=== PATIENT | male | born 1970 | race Caucasian/White ===

== ENCOUNTER 2020-03-02 11:32 | Outpatient (NON) | payer OTHER, SELFPAY ==
[2020-03-03 00:03] LABS: SARS-CoV-2 RNA PCR Positive
== END 2020-03-02 11:33 ==
LOC: ANHCOVIDDT 11:33
PROVIDERS: PCP Family Medicine; Visit Provider Family Medicine
DX: U07.1 COVID-19 (principal)
CPT/HCPCS: 87635; C9803; U0003

== ENCOUNTER 2021-03-06 08:38 | Emergency (ER) | payer OTHER, SELFPAY ==
--- NOTE | ~2021-03-06 | US_ITS ---
EXAMINATION: US venous doppler LE RT EXAM DATE: 03/06/2021 10:17 INDICATION: Right leg pain. TECHNIQUE: Multiple grayscale, color flow and Doppler images of the right lower extremity deep venous system were obtained and reviewed. Correlation is made to CT abdomen pelvis 04/21/2015. FINDINGS: The right common femoral, femoral and profunda veins demonstrate normal color flow, respira tory variation, augmentation and compressibility. Compressibility, color flow confirmed within the r ight popliteal, posterior tibial, peroneal, and greater saphenous veins. Right inguinal lymph node m easuring 1.4 x 2.4 x 3.1 cm which could be reactive. There were some prominent lymph nodes on a prior CT 2016 in this location. IMPRESSION: 1. No right lower extremity deep venous thrombosis. 2. Mild right inguinal lymphadenopathy, would favor reactive etiology over malignancy. Reviewed, dictated and finalized at location A. CAL RECORD TECHNICIAN IMPRESSION: 1. No right lower extremity deep venous thrombosis. 2. Mild right inguinal lymphadenopathy, would favor reactive etiology over mal ignancy.
[2021-03-06 08:48] VITALS: BP 192/112; PULSE 91; RESP 18; TEMP 36.7; O2SAT 100
--- NOTE | 2021-03-06 09:18 | ED.EXTPRO ---
HPI - Extremity Problem General Chief complaint: Extremity Problem,Nontraumatic Stated complaint: leg swollen and red Time Seen by Provider: 03/06/21 09:07 Source: patient Mode of arrival: ambulatory Limitations: no limitations History of Present Illness HPI Narrative: Patient is a 50-year-old male complaining of right leg pain, redness and swelling that started 2 days ago. Patient denies any injury to the area. Patient denies any chest pain, shortness of breath, fever or chills. Severity scale (1-10): 4 Quality: dull Radiation: none Relieving factors: nothing Exacerbating factors: nothing Associated symptoms: denies other symptoms Related Data Allergies Allergy/AdvReac Type Severity Reaction Status Date / Time No Known Allergies Allergy Unknown Verified 05/13/19 14:40 Review of Systems Review of Systems: All systems reviewed & are unremarkable except as noted in HPI and below Constitutional: Constitutional: Denies body ache(s), Denies chills, Denies excessive sweating, Denies fatigue, Denies fever(s), Denies headache(s), Denies lethargy, Denies malaise, Denies weakness and Denies weight loss Eyes: Eyes: Denies blurry vision, Denies change in vision and Denies loss of vision ENT: Denies dizziness, Denies ear discharge, Denies headache(s), Denies lip swelling, Denies epistaxis, Denies nasal congestion, Denies neck pain, Denies throat swelling and Denies tongue swelling Cardiovascular: Cardiovascular: Denies chest pain, Denies chest pain at rest, Denies chest pain with activity, Denies diaphoresis, Denies rapid heart rate, Denies edema, Denies irregular heart rhythm, Denies lightheadedness, Denies palpitations, Denies dyspnea and Denies dyspnea on exertion Respiratory: Respiratory: Denies chest congestion, Denies cough, Denies hemoptysis, Denies dyspnea and Denies dyspnea on exertion Gastrointestinal: Gastrointestinal: Denies abdominal pain, Denies melena, Denies hematochezia, Denies diarrhea, Denies nausea, Denies vomiting and Denies hematemesis Musculoskeletal: Musculoskeletal: Denies abnormal gait, Denies deformity, Denies joint swelling, Denies limited range of motion, Denies neck pain and Denies numbness Neurologic: Denies Abnormal speech present, Denies abnormal gait, Denies confusion, Denies dizziness, Denies headache(s), Denies focal weakness, Denies loss of vision, Denies numbness, Denies Other visual disturbances, Denies Sensory deficit (Neuro) and Denies weakness Psychiatric: Psychiatric: Denies confusion, Denies depression, Denies auditory hallucinations, Denies homicidal ideation and Denies suicidal ideation Endocrine: Endocrine: Denies cold intolerance, Denies excessive sweating, Denies fatigue, Denies heat intolerance and Denies palpitations Hematologic/Lymphatic: Hematologic/Lymphatic: Denies easy bleeding and Denies easy bruising Allergic/Immunologic: Allergic/Immunologic: Denies lip swelling, Denies throat swelling and Denies tongue swelling PMFSH Past Medical History Medical History (Updated 03/06/21 @ 10:44 by Kenton Palma MD) Anemia HTN (hypertension) Hyperlipidemia Phimosis of penis Prediabetes Social History Social History Smoking status: Never smoker Alcohol intake: never Exam Const: General: cooperative, comfortable, no acute distress, well developed, alert and awake; No confusion Nutritional Appearance: obese Orientation/consciousness: oriented to person, oriented to place, oriented to time, patient oriented x3 and No confusion Limitations: no limitations HENMT: Head: normal to inspection, normocephalic and atraumatic Ears: hearing grossly normal bilaterally, TM normal on the right and TM normal on the left General nose exam: Normal external nose present, Normal nares present and No nasal discharge present Face and sinus: normal facial exam Mouth: Yes Normal oral and palatal mucosa present, Yes lip normal, Yes tongue normal
[2021-03-06 09:48] LABS: Basophils Percent Auto 0.4 % (0.2-1.2); Eosinophils Absolute Auto 0.7 K/mm3 (0-0.3); Eosinophils Percent Auto 8.9 % (0-4.4); Hemoglobin 10.6 g/dL (14.0-18.0); Immature Granulocyte Absolute 0.03 K/mm3 (0.00-0.031); Immature Granulocyte Percent A 0.4 % (0-0.5); Lymphocytes Percent Auto 7.8 % (18.3-44.2); Mean Corpuscular HGB Conc 27.9 g/dl (32-36); Mean Corpuscular Hemoglobin 19.4 pg (26-34); Mean Corpuscular Volume 69.5 fl (80-100); Mean Platelet Volume 9.1 fl (7.4-10.4); Monocytes Absolute Auto 0.6 K/mm3 (0.1-0.6); Monocytes Percent Auto 7.9 % (2.6-8.5); Neutrophils Absolute Auto 5.8 K/mm3 (1.3-6.7); Neutrophils Percent Auto 74.6 % (45.5-73.1); Platelet Count Result 240 k/mm3 (150-375); Red Blood Count 5.47 M/mm3 (4.6-6.20); Red Cell Distribution Width 17.7 % (11.5-14.5); White Blood Count 7.7 K/mm3 (4.5-10.0)
[2021-03-06 10:09] LABS: Anion Gap 7 mmol/L (8-16); Blood Urea Nitrogen 12 mg/dL (9-20); Calcium 8.6 mg/dL (8.4-10.2); Carbon Dioxide 29 mmol/L (22-30); Chloride 97 mmol/L (98-107); Estimated CRCL calculation 146 ml/min; Estimated Glomerular Filt Rate > 60; Glucose 242 mg/dL (65-110); Potassium 3.8 mmol/L (3.4-5.0); Sodium 133 mmol/L (137-145)
[2021-03-06 10:46] VITALS: BP 174/98; PULSE 93; RESP 16; O2SAT 98
== END 2021-03-06 11:28 | disposition home or self-care (01) ==
PROVIDERS: Emergency Provider Emergency Medicine; PCP Family Medicine
DX: L03.115 Cellulitis of right lower limb (principal); I10 Essential (primary) hypertension; E78.5 Hyperlipidemia, unspecified; R73.03 Prediabetes; D64.9 Anemia, unspecified
CPT/HCPCS: 36415; 80048; 85025; 93971; 99284

== ENCOUNTER 2022-12-26 12:23 | Observation (INO) | payer OTHER, SELFPAY ==
[2022-12-26] VITALS (17 sets, daily range): BP systolic 164–203; BP diastolic 96–110; PULSE 89–114; RESP 17–23; TEMP 36.2–36.7; O2SAT 88–98; BMI 39.9
--- NOTE | ~2022-12-26 | US_ITS ---
EXAMINATION:US venous doppler LE BI INDICATION:Leg swelling TECHNIQUE: Multiple grayscale, color flow and Doppler images of the right and left lower extremity de ep venous systems were obtained and reviewed. COMPARISON:03/06/2021 FINDINGS: The common femoral, superficial femoral and popliteal veins demonstrate normal respiratory variation, augmentation and compressibility. Color flow is also seen within the posterior tibial, pe roneal, greater saphenous and profunda veins. IMPRESSION: 1: No lower extremity deep venous thrombosis. Reviewed, dictated and finalized at location B.
--- NOTE | ~2022-12-26 | XR_ITS ---
EXAMINATION: XR chest 2V DATE: 12/26/2022 13:32 INDICATION: Shortness of breath. Cough. TECHNIQUE: Frontal and lateral views of the chest were obtained. COMPARISON: Chest single view 12/06/2013, chest CT 12/12/2013 FINDINGS: There is a diffuse interstitial pattern in the lungs, consistent mild pulmonary edema. Ther e are small pleural effusions. There is mild atelectasis at the lung bases. No pneumothorax. Cardiome michaelle is noted. Again seen is a benign bone island in right fifth rib. IMPRESSION: 1. Mild pulmonary edema. 2. Small pleural effusions. 3. Cardiomegaly. Reviewed, dictated and finalized at location A.
--- NOTE | 2022-12-26 12:31 | ECG_ITS ---
Measurements Intervals [place] Rate: 105 P: 41 [place]: 167 QRS: 37 QRSD: 114 T: 72 QT: 362 QTc: 479 Interpretive Statements SINUS TACHYCARDIA INTRAVENTRICULAR CONDUCTION DELAY BASELINE ARTIFACT- V2 BORDERLINE ECG NO PREVIOUS ECG AVAILABLE FOR COMPARISON Electronically Signed On 12-26-2022 13:07:02 CDT by Godwin Granados D.O.
[2022-12-26 12:55] LABS: Basophils Percent Auto 0.5 % (0.2-1.2); Eosinophils Absolute Auto 0.4 K/mm3 (0-0.3); Eosinophils Percent Auto 4.8 % (0-4.4); Hemoglobin 9.4 g/dL (14.0-18.0); Immature Granulocyte Absolute 0.05 K/mm3 (0.00-0.031); Immature Granulocyte Percent A 0.7 % (0-0.5); Lymphocytes Absolute Auto 0.91 K/mm3 (0.9-3.2); Lymphocytes Percent Auto 11.9 % (18.3-44.2); Mean Corpuscular HGB Conc 26.1 g/dl (32-36); Mean Corpuscular Hemoglobin 17.8 pg (26-34); Mean Corpuscular Volume 68.1 fl (80-100); Mean Platelet Volume 10.1 fl (7.4-10.4); Monocytes Absolute Auto 0.7 K/mm3 (0.1-0.6); Monocytes Percent Auto 8.8 % (2.6-8.5); Neutrophils Absolute Auto 5.6 K/mm3 (1.3-6.7); Neutrophils Percent Auto 73.3 % (45.5-73.1); Nucleated Red Blood Cells Perc 0.3 % (0.0-0.2); Platelet Count Result 291 k/mm3 (150-375); Red Blood Count 5.29 M/mm3 (4.6-6.20); Red Cell Distribution Width 18.6 % (11.5-14.5); White Blood Count 7.6 K/mm3 (4.5-10.0)
[2022-12-26 13:04] LABS: Alanine Aminotransferase 68 U/L (6-50); Albumin Level 3.7 g/dL (3.5-5.1); Alkaline Phosphatase 81 U/L (38-126); Anion Gap 4 mmol/L (8-16); Aspartate Amino Transferase 47 U/L (17-59); Bilirubin,Total 0.6 mg/dL (0.2-1.3); Blood Urea Nitrogen 13 mg/dL (9-20); Calcium 8.1 mg/dL (8.4-10.2); Carbon Dioxide 31 mmol/L (22-30); Chloride 98 mmol/L (98-107); Estimated CRCL calculation 198 ml/min; Estimated Glomerular Filt Rate > 60; Glucose 236 mg/dL (65-110); Potassium 4.1 mmol/L (3.4-5.0); Sodium 133 mmol/L (137-145)
--- NOTE | 2022-12-26 13:14 | PC.NURSE ---
Pt 89% on room air, placed on 2 L NC O2 and pulse Ox Sat now 97%.
[2022-12-26 13:28] LABS: Anisocytosis 1+ (NORMAL); Hypochromasia 1+ (NORMAL); Platelet Estimate Adequate (Adequate); Schistocytes None Seen (NORMAL)
[2022-12-26 14:08] LABS: NT Pro B Type Natriuretic Pept 1150 pg/mL (19.9-100)
--- NOTE | 2022-12-26 14:38 | PC.NURSE ---
pt placed on 2 LNC after SPO2 of 88-90% on RA trial
--- NOTE | 2022-12-26 14:38 | ED.SOB ---
HPI - SOB/Dyspnea General Chief Complaint: Shortness of Breath/Dyspnea Stated Complaint: SOB Time Seen by Provider: 12/26/22 14:15 History of Present Illness HPI Narrative: Patient is a 52-year-old male with a history of diabetes, hypertension presenting with shortness of breath. Patient states that for the last week he has had increasingly worsening dyspnea. States that he initially had some nasal congestion so he thought it was just a cold. His PCP started him on a Z-Oc which he finished 2 days ago. States that his cough and nasal congestion have improved but he continues to feel short of breath. States that it is gotten so bad that he is unable to go to work. States that he has been sleeping in a chair for the last 4 days as he cannot breathe if he lays flat. Denies chest pain or lightheadedness. He does report bilateral lower extremity swelling. No fevers or chills, numbness or weakness, vomiting, diarrhea, back pain, dysuria. Related Data Home Medications Medication Instructions Recorded Confirmed empagliflozin 12.5 mg-metformin ER 2 tablet PO DAILY 12/26/22 12/26/22 1,000 mg tablet,extended rel 24 hr (Synjardy XR) Allergies Allergy/AdvReac Type Severity Reaction Status Date / Time watermelon Allergy Swelling Verified 12/26/22 23:29 of Lip/Tongue/Throat Review of Systems Review of Systems: All systems reviewed & are unremarkable except as noted in HPI and below PMFSH Past Medical History Medical History Anemia BMI 39.0-39.9,adult Diabetes type 2, uncontrolled HTN (hypertension) Hyperlipidemia Phimosis of penis Prediabetes Family History Family History (Updated 12/26/22 @ 22:24 by Lalit Gonzalez RN) Grandparent Bone cancer Grandparent Lung cancer Social History Social History Smoking status: Never smoker Alcohol intake: never Substance use: never Lack of Transportation: No Lack of Food: Never True Current Housing: I Have Housing Concerned About Future Housing: YES Difficulty Paying Gas/Electric Bills: No Difficulty Paying for Meds: YES Currently Unemployed: No Education: High School Diploma/GED Difficulty w/ Childcare or Family Care: No Spiritual care concerns: No Exam Narrative: GENERAL: In no acute distress, pleasant and cooperative HEAD: Normocephalic, atraumatic. EYES: PERRLA and EOMI. ENT: + Nasal congestion. Mucous membranes moist. NECK: Supple. CHEST: Clear to auscultation. No respiratory distress. HEART: Regular rate and rhythm. No murmur heard. Normal peripheral pulses. ABDOMEN: Soft, nontender, nondistended EXTREMITIES: Normal range of motion. 1+ pitting edema bilateral lower extremities to mid calves SKIN: Warm, dry, no rash. NEURO: No focal deficits. Alert and oriented x3. PSYCH: Normal mood and affect. Course Vital Signs Vital signs: Vital Signs Temperature 98.0 F 12/26/22 12:36 Pulse Rate 109 H 12/26/22 12:36 Respiratory Rate 18 12/26/22 12:36 Blood Pressure 198/101 H 12/26/22 12:36 Pulse Oximetry 95 12/26/22 12:36 Oxygen Delivery Room Air 12/26/22 12:36 Temperature 96.9 F L 12/28/22 11:50 Pulse Rate 76 12/28/22 11:50 Respiratory Rate 20 12/28/22 11:50 Blood Pressure 161/86 H 12/28/22 11:50 Pulse Oximetry 96 12/28/22 11:50 Oxygen Delivery Room Air 12/27/22 16:00 Oxygen Flow Rate 2 12/26/22 14:25 MDM - SOB/Dyspnea MDM Narrative Medical decision making narrative: Patient is a 52-year-old male presenting with dyspnea. Patient is hypertensive, he was hypoxic on room air to 88%. Placed on 2 L nasal cannula with improvement to the mid 90s. Exam remarkable for the above. EKG per my interpretation shows sinus tachycardia, normal axis, no ST elevations or depressions. Chest x-ray with cardiomegaly as well as evidence of pulmonary edema with small sarah
[2022-12-26 15:02] LABS: Prothrombin Time 13.7 Seconds (11.1-14.7)
[2022-12-26 15:26] LABS: Influenza A QL RT-PCR Negative (Negative); Influenza B QL RT-PCR Negative (Negative); RSV RNA, RT-PCR Negative (Negative); SARS-CoV-2 RNA PCR Negative (Negative)
[2022-12-26] MEDS: FUROSEMIDE INJ 40 MG/4 ML VIAL IV PUSH (19:08)
[2022-12-26 19:37] LABS: Troponin I 0.053 ng/mL (0.000-0.034)
--- NOTE | 2022-12-26 19:40 | PM.IMHP ---
H&P: HPI History of Present Illness Date/Time: 12/26/22 19:40 Chief Complaint: SOB Narrative: THIS IS A 52-YEAR-OLD MALE WITH PAST MEDICAL HISTORY SIGNIFICANT FOR HYPERTENSION, TYPE 2 DIABETES MELLITUS, PATIENT PRESENTS TO THE EMERGENCY ROOM DUE TO BILATERAL LOWER EXTREMITY WORSENING EDEMA, SHORTNESS OF BREATH, PND, ORTHOPNEA HAS BEEN SLEEPING IN HIS RECLINER DENIES NAUSEA VOMITING ABDOMINAL PAIN, DIARRHEA, COUGH, SPUTUM PRODUCTION, SYNCOPE OR NEAR-SYNCOPE, HAS HAD CHEST PAIN ON AND OFF ON EXERTION. PRELIMINARY WORKUP WAS SIGNIFICANT FOR BRAIN NATRIURETIC PEPTIDE 1150 TROPONINS X3 0.4 / 0.53/ 0.4, CHEST X-RAY WAS REPORTED : EXAMINATION: XR chest 2V DATE: 12/26/2022 13:32 INDICATION: Shortness of breath. Cough. TECHNIQUE: Frontal and lateral views of the chest were obtained. COMPARISON: Chest single view 12/06/2013, chest CT 12/12/2013 FINDINGS: There is a diffuse interstitial pattern in the lungs, consistent mild pulmonary edema. There are small pleural effusions. There is mild atelectasis at the lung bases. No pneumothorax. Cardiomegaly is noted. Again seen is a benign bone island in right fifth rib. IMPRESSION: 1. Mild pulmonary edema. 2. Small pleural effusions. 3. Cardiomegaly. EKG Rate 105 MI 167 QRSd 114 QT 362 QTc 479 --Dairy-- P 41 QRS 37 T 72 SINUS TACHYCARDIA INTRAVENTRICULAR CONDUCTION DELAY BASELINE ARTIFACT- V2 BORDERLINE ECG NO PREVIOUS ECG AVAILABLE FOR COMPARISON Electronically Signed On 12-26-2022 13:07:02 Review of Systems Review of Systems: SOB, LEG SWELLING, PND, ORTHOPNEA Constitutional: Constitutional: Denies chills, Reports fatigue, Denies fever(s), Denies frequent falls, Denies night sweats, Denies poor appetite, Denies weakness and Reports weight gain Eyes: Eyes: Denies change in vision ENT: Denies dysphagia, Denies vertigo, Denies dizziness and Denies odynophagia Cardiovascular: Cardiovascular: Reports chest pain, Reports leg edema, Denies radiating jaw, neck or arm pain, Denies palpitations, Reports dyspnea, Reports dyspnea on exertion, Reports orthopnea and Reports paroxysmal nocturnal dyspnea Respiratory: Respiratory: Denies chest congestion, Denies cough, Denies excessive phlegm production and Denies pain on inspiration Gastrointestinal: Gastrointestinal: Denies abdominal pain, Denies dyspepsia, Denies heartburn, Denies diarrhea, Denies nausea and Denies vomiting Genitourinary: Genitourinary: Denies dysuria Musculoskeletal: Musculoskeletal: Denies abnormal gait and Denies limited range of motion Integumentary/Breasts: Skin/Breast: Denies rash Neurologic: Denies vertigo, Denies dizziness, Denies focal weakness and Denies Sensory deficit (Neuro) Psychiatric: Psychiatric: Reports no additional psychiatric complaints and Reports as per HPI Endocrine: Endocrine: Denies cold intolerance, Denies fatigue, Denies flushing, Denies heat intolerance, Denies polyphagia, Denies polydipsia and Denies palpitations Hematologic/Lymphatic: Hematologic/Lymphatic: Reports no additional hematologic/lymphatic complaints and Reports as per HPI Allergic/Immunologic: Allergic/Immunologic: Reports no additional allergic/immunologic complaints and Reports as per HPI PMFSH Past Medical History Medical History Anemia BMI 39.0-39.9,adult Diabetes type 2, uncontrolled HTN (hypertension) Hyperlipidemia Phimosis of penis Prediabetes Family History Family History (Updated 12/26/22 @ 22:24 by Lalit Gonzalez RN) Grandparent Bone cancer Grandparent Lung cancer Social History Social History Smoking status: Never smoker Alcohol intake: never Substance use: never Lack of Transportation: No Lack of Food: Never True Current Housing: I Have Housing Concerned About Future Housing: YES Difficulty Paying Gas/Electric Bills: No Difficulty Paying for Meds: YES Currently U
--- NOTE | 2022-12-26 22:31 | ADMGEN ---
This patient, Nixon Su, was admitted to IMU Room 209-. Patient/family oriented to hospital policies and general routines including ID bracelet, bed and alarms, visiting hours, pain management, procedures, bathroom and other care routines, personal items, smoking policy, room service/diet, and visiting hours. Information on how to activate the Rapid Response Team has been discussed. Patient/Family are encouraged to report perceived risks to care and to ask questions if they do not understand what they are told or what they should do.
--- NOTE | 2022-12-26 22:46 | PC.NURSE ---
Patient previously taking home meds, hasn't taken anything recently (last few months) despite filling metoprolol prescription recently. I'll include a list of what patient was previously prescribed, but removed from home medication list. Amlodipine 5mg Daily Ramipril 10mg Daily Synjardy 12.5-1000 x 2 Daily Metoprolol 50mg Daily
[2022-12-26 23:22] LABS: Glucose Point of Care 193 mg/dl (65-105)
[2022-12-27] VITALS (16 sets, daily range): BP systolic 141–182; BP diastolic 73–93; PULSE 59–103; RESP 16–22; TEMP 36.2–36.7; O2SAT 93–98
--- NOTE | 2022-12-27 | ECHO_ITS ---
Patient Info Name: Nixon Su Age: 52 years : 1970 Gender: Male Ht: 70 in Wt: 280 lbs BSA: 2.56 m2 HR: 100 bpm BP: 153 / 93 mmHg Heart Rhythm: Sinus Rhythm Technical Quality: Good Exam Date: 12/27/2022 9:58 AM Exam Location: [facility] Patient Status: Inpatient Admit Date: 12/26/2022 Staff Ordering Physician: Elsie Jiménez MD Prospecting Driller Helper: Maximiliano Quispe RDCS Attending Provider: Kash Stanton MD Referring Physician: Jessy VALDEZ; Exam Type: CA echo doppler color flow Study Info Indications - leg swelling Complete two-dimensional, color flow and Doppler transthoracic echocardiogram is performed with contrast to opacify the left ventricle and to improve the deliniation of the left ventricle endocardial borders. Summary 1. Left ventricular chamber dimension is normal. 2. Left ventricular systolic function is mildly reduced, estimated at 45-50%. 3. Right ventricular systolic function is normal. 4. There is mild mitral valve regurgitation. 5. There is mild tricuspid valve regurgitation. 6. There is small pericardial effusion. Left Ventricle Left ventricular chamber dimension is normal. Left ventricular systolic function is mildly reduced, estimated at 45-50%. There is no increased left ventricular wall thickness. Right Ventricle Right ventricular chamber dimension is normal. Right ventricular systolic function is normal. Left Atria Left atrial chamber dimension is normal. Right Atria Right atrial chamber dimension is normal. Atrial Septum Intact interatrial septum visualized by color flow imaging. Aortic Valve The aortic valve is not well visualized. There is no aortic valve stenosis. There is no aortic valve regurgitation. Pulmonic Valve The pulmonic valve is not well visualized. Mitral Valve There is mild mitral valve regurgitation. The mitral valve annulus is moderately calcified. Tricuspid Valve There is mild tricuspid valve regurgitation. Pericardium/Pleural There is small pericardial effusion. Inferior Vena Cava Dilated inferior vena cava with >50% collapse upon inspiration consistent with elevated right atrial pressure, 8 mmHg. Aorta The aortic root size at the sinus of Valsalva is normal. Left Ventricular Outflow Tract Name Value Normal LVOT 2D LVOT Diameter 1.9 cm LVOT Doppler LVOT Peak Gradient 2 mmHg LVOT Mean Gradient 1 mmHg LVOT VTI 24 cm LVOT VTI/AV VTI Ratio 0.9 LVOT Stroke Volume 72 ml LVOT CO 3.7 l/min LVOT CI 1.4 l/min/m2 Pulmonic Valve Name Value Normal RVOT Doppler RVOT Peak Gradient 1 mmHg PV Doppler PV Peak Gradient 2 mmHg Alex
[2022-12-27] MEDS: amLODIPine BESYLATE 5 MG TABLET PO ×2 (00:17→11:03)
[2022-12-27] MEDS: METOPROLOL SUCCINATE EXT REL 50 MG TABCR PO ×2 (00:17→11:02)
[2022-12-27] MEDS: ramipriL 5 MG CAPSULE 10 MG PO ×2 (00:20→11:02)
[2022-12-27 04:56] LABS: Hemoglobin A1C 9.9 % (<5.7)
[2022-12-27 08:18] LABS: Glucose Point of Care 182 mg/dl (65-105)
[2022-12-27] MEDS: FUROSEMIDE INJ 40 MG/4 ML VIAL IV PUSH ×2 (10:53→18:03)
[2022-12-27 12:29] LABS: Glucose Point of Care 141 mg/dl (65-105)
[2022-12-27 13:03] LABS: Anion Gap 3 mmol/L (8-16); Blood Urea Nitrogen 12 mg/dL (9-20); Calcium 8.4 mg/dL (8.4-10.2); Carbon Dioxide 36 mmol/L (22-30); Chloride 98 mmol/L (98-107); Estimated CRCL calculation 166 ml/min; Estimated Glomerular Filt Rate > 60; Glucose 199 mg/dL (65-110); Potassium 4.3 mmol/L (3.4-5.0); Sodium 137 mmol/L (137-145)
[2022-12-27 13:16] LABS: Troponin I 0.047 ng/mL (0.000-0.034)
--- NOTE | 2022-12-27 16:33 | PM.IMPN ---
Progress Note: A&P Assessment and Plan (1) CHF (congestive heart failure): Code(s): I50.9 - Heart failure, unspecified Status: Acute (2) Elevated troponin I level: Code(s): R77.8 - Other specified abnormalities of plasma proteins Status: Acute (3) Diabetes type 2, uncontrolled: Qualifiers: Glycemic state: with hyperglycemia Qualified Code(s): E11.65 - Type 2 diabetes mellitus with hyperglycemia Code(s): E11.65 - Type 2 diabetes mellitus with hyperglycemia Status: Acute Plan 52M w/ PMH HTN, obesity, NIDDM presented with shortness of breath, admitted on 12/26/22. Diagnoses: acute on chronic CHF exacerbation, unknown subtype obesity NIDDM HTN 1) Acute on Chronic CHF exacerbation, unknown subtype - pending echocardiogram - increased lasix from 40mg IV BID to TID since his LE edema has returned - counseled extensively on weight loss, exercise, blood pressure and glucose control, salt and fluid restriction and compliance with medications - will need CHF clinic and department assistant referral on discharge FEN: saline lock IV, cardiac diabetic diet with 1.8L/day fluid restriction GI prophylaxis: none DVT prophylaxis: SCDs Lines: pIV Code Status: Full code Dispo: pending medication mgmt. then home More than 25 minutes spent on chart review, patient interaction and assessment and plan. Subjective Date/time seen: 12/27/22 16:33 Interval history: NAOE. Pt reports improved breathing. We are still waiting on echo results. He and the Kin krause report recurrence of bilateral leg edema. Review of Systems Cardiovascular: Cardiovascular: Denies chest pain, Reports leg edema and Denies dyspnea Respiratory: Respiratory: Denies cough and Denies dyspnea Gastrointestinal: Gastrointestinal: Denies abdominal pain and Denies vomiting Exam Const: General: no acute distress, alert and Physically active Resp: Effort & Inspection: normal respiratory effort Auscultation: clear to auscultation bilaterally Cardio: Rate: regular rate Rhythm: regular rhythm Heart sounds: S1 normal heart sound present and S2 normal heart sound present GI: Inspection: non-distended GI Palp: No abdominal tenderness Auscultation: normal bowel sounds Extrem: Right upper extremity: edema Objective Data Vital Signs Vital Signs: Vital Signs - 24 hr 12/26/22 16:45 12/26/22 17:47 12/26/22 18:46 Temperature 97.5 F L Pulse Rate 93 94 96 Respiratory Rate 20 20 20 Blood Pressure 203/102 H 187/98 H 164/97 H Pulse Oximetry 97 97 98 Oxygen Delivery 12/26/22 21:35 12/26/22 22:56 12/27/22 00:17 Temperature 97.2 F L Pulse Rate 94 105 H 103 H Respiratory Rate 17 22 H Blood Pressure 171/96 H 178/107 H Pulse Oximetry 96 97 Oxygen Delivery 12/27/22 00:00 12/27/22 04:00 12/27/22 06:00 Temperature 97.1 F L Pulse Rate 91 100 70 Respiratory Rate 22 H Blood Pressure 153/93 H Pulse Oximetry 98 Oxygen Delivery 12/27/22 04:00 12/27/22 08:00 12/27/22 11:02 Temperature 97.8 F Pulse Rate 91 73 71 Respiratory Rate 18 Blood Pressure 147/83 H Pulse Oximetry 97 Oxygen Delivery 12/27/22 10:19 12/27/22 12:00 12/27/22 08:00 Temperature 97.7 F Pulse Rate 88 74 Respiratory Rate 18 Blood Pressure 141/87 H Pulse Oximetry 96 96 Oxygen Delivery 12/27/22 10:00 12/27/22 12:00 12/27/22 08:00 Temperature Pulse Rate 72 66 66 Respiratory Rate 18 Blood Pressure Pulse Oximetry 96 Oxygen Delivery Room Air 12/27/22 12:00 Temperature Pulse Rate Respiratory Rate Blood Pressure Pulse Oximetry Oxygen Delivery Room Air Meds/Results Medications: Active Medications Generic Name Dose Route Start Last Admin Trade Name Grealdq PRN Reason Stop Dose Admin Amlodipine Besylate 5 mg 12/27/22 00:10 12/27/22 11:03 Amlodipine Besylate 5 Mg Tablet PO 5 mg DAILY SAIRA Administration Dextrose 12.5 gm 12/27/22 00:09 Dextrose 50%
[2022-12-27 16:36] LABS: Glucose Point of Care 199 mg/dl (65-105)
[2022-12-27] MEDS: INSULIN ASPART (*BKC) 100 UNITS/ML SUB-Q (20:18)
[2022-12-27 20:20] LABS: Glucose Point of Care 213 mg/dl (65-105)
[2022-12-28] VITALS (8 sets, daily range): BP systolic 137–161; BP diastolic 69–86; PULSE 66–108; RESP 18–22; TEMP 36.1–36.5; O2SAT 96–97
[2022-12-28 05:22] LABS: Hematocrit 38.7 % (42.0-52.0); Hemoglobin 9.8 g/dL (14.0-18.0); Mean Corpuscular HGB Conc 25.3 g/dl (32-36); Mean Corpuscular Hemoglobin 17.5 pg (26-34); Mean Corpuscular Volume 69.2 fl (80-100); Mean Platelet Volume 10.3 fl (7.4-10.4); Platelet Count Result 296 k/mm3 (150-375); Red Blood Count 5.59 M/mm3 (4.6-6.20); Red Cell Distribution Width 18.8 % (11.5-14.5)
[2022-12-28 05:35] LABS: Anion Gap 1 mmol/L (8-16); Blood Urea Nitrogen 14 mg/dL (9-20); Calcium 8.3 mg/dL (8.4-10.2); Carbon Dioxide 39 mmol/L (22-30); Chloride 95 mmol/L (98-107); Estimated CRCL calculation 166 ml/min; Estimated Glomerular Filt Rate > 60; Glucose 147 mg/dL (65-110); Potassium 4.1 mmol/L (3.4-5.0); Sodium 135 mmol/L (137-145)
[2022-12-28 08:14] LABS: Glucose Point of Care 137 mg/dl (65-105)
[2022-12-28] MEDS: ramipriL 5 MG CAPSULE 10 MG PO (09:09)
[2022-12-28] MEDS: METOPROLOL SUCCINATE EXT REL 50 MG TABCR PO (09:09)
[2022-12-28] MEDS: amLODIPine BESYLATE 5 MG TABLET PO (09:10)
[2022-12-28] MEDS: FUROSEMIDE INJ 40 MG/4 ML VIAL IV PUSH ×2 (09:10→12:10)
--- NOTE | 2022-12-28 11:38 | PM.DS ---
DS: Admitting Diagnosis Discharge Date 12/28/22 Admitting Diagnosis fluid overload DS: Discharge Diagnosis Discharge Diagnosis (1) CHF (congestive heart failure): Code(s): I50.9 - Heart failure, unspecified Status: Acute DS: Summary Hospital Course Hospital Course: A pleasant 52M w/ PMH HTN, obesity, NIDDM presented with shortness of breath 2/2 to newly diagnosed and decompensated HF borderline ejection fraction EF with a 2d echo demonstrating 45-50%EF. He was treated with Lasix and will be discharged on 40mg PO BID along with spironolactone 25mg po qday. He is already on metoprolol. His condition improved, breathing better, and will be discharged home in stable condition. He will follow up with [facility]ology of [facility] within 2 weeks and his PCP as well. counseled on lifestyle modification, better mgmt of his comorbid conditions, and fluid and salt restriction. More than 30 minutes spent on discharge planning and documentation. Time Spent with Patient Time attestation: Total time spent providing and/or coordinating discharge services: Exam Const: General: cooperative and no acute distress Resp: Effort & Inspection: normal respiratory effort Auscultation: crackles (minimal) Cardio: Rate: regular rate Rhythm: regular rhythm Heart sounds: S1 normal heart sound present and S2 normal heart sound present GI: GI Palp: No abdominal tenderness Auscultation: normal bowel sounds Extrem: General: edema (2+ of b/l LEs) DS: Data Data Completed and Pending Labs on day of discharge: Labs from last 24 hours 12/28/22 12/28/22 12/27/22 07:41 04:44 20:00 WBC 5.0 RBC 5.59 Hgb 9.8 L Hct 38.7 L MCV 69.2 L MCH 17.5 L MCHC 25.3 L RDW 18.8 H Plt Count 296 MPV 10.3 Sodium 135 L Potassium 4.1 Chloride 95 L Carbon Dioxide 39 H Anion Gap 1 L BUN 14 Creatinine 0.60 L Estim Creat Clear Calc 166 Estimated GFR > 60 Glucose 147 H POC Capillary Glucose 137 H 213 H Calcium 8.3 L Troponin I 12/27/22 12/27/22 12/27/22 16:28 11:09 04:21 WBC RBC Hgb Hct MCV MCH MCHC RDW Plt Count MPV Sodium 137 Potassium 4.3 Chloride 98 Carbon Dioxide 36 H Anion Gap 3 L BUN 12 Creatinine 0.60 L Estim Creat Clear Calc 166 Estimated GFR > 60 Glucose 199 H POC Capillary Glucose 199 H 141 H Calcium 8.4 Troponin I 0.047 H* Discharge Plan Discharge Attending physician on discharge: Melissa Lane Discharging Clinician: Melissa Lane Patient Disposition: Home, Self-Care Activity: may shower Diet: heart healthy and diabetic Discharge Instructions: as discussed, follow up with your PCP to manage diabetes and other conditions. follow up with [facility] and CHF clinic. continue to eat healthy and exercise Stand Alone Forms: General Discharge Information, Work/School Release IP Follow-up/Referrals: [facility] [Provider Group] - 2 Weeks (new onset HF) Carlos Pike MD [Primary Care Provider] - Discharge Medications: New furosemide [Lasix] 40 mg tablet 40 mg PO BID Qty: 60 2RF spironolactone 25 mg tablet 25 mg PO DAILY Qty: 30 2RF Continued metoprolol succinate 50 mg tablet extended release 24 hr 50 mg PO DAILY amlodipine 5 mg tablet 5 mg PO DAILY ramipril 10 mg capsule 10 mg PO DAILY Synjardy XR 12.5-1,000 mg Tablet, Ir - Er, Biphasic 24hr 2 tablet PO DAILY Discontinued naproxen 2 tablet PO PRN Date of admission: 12/26/22 17:18 Primary Care Provider: Carlos Pike Admitting Provider: Kash Stanton Attending physician on admission: Kash Stanton Condition: Stable
[2022-12-28] MEDS: INSULIN ASPART (*BKC) 100 UNITS/ML SUB-Q (12:02)
[2022-12-28 13:55] LABS: Glucose Point of Care 274 mg/dl (65-105)
== END 2022-12-28 12:55 | disposition home or self-care (01) ==
LOC: ANHED 14:15 → ANHIMU 22:09
PROVIDERS: Emergency Medicine; Internal Medicine; Admitting Provider Internal Medicine; Emergency Provider Emergency Medicine; PCP Family Medicine; Visit Provider General Practice
DX: I11.0 Hypertensive heart disease with heart failure (principal); I50.9 Heart failure, unspecified; R77.8 Other specified abnormalities of plasma proteins; J96.91 Respiratory failure, unspecified with hypoxia; Z20.822 Contact with and (suspected) exposure to COVID-19; E66.9 Obesity, unspecified; Z68.39 Body mass index [BMI] 39.0-39.9, adult; E11.65 Type 2 diabetes mellitus with hyperglycemia; I08.1 Rheumatic disorders of both mitral and tricuspid valves; D64.9 Anemia, unspecified; E78.5 Hyperlipidemia, unspecified; J90 Pleural effusion, not elsewhere classified; Z79.1 Long term (current) use of non-steroidal anti-inflammatories (NSAID); Z79.899 Other long term (current) drug therapy
CPT/HCPCS: 36415; 71046; 80048; 80053; 82948; 83036; 83880; 84484; 85025; 85027; 85610; 85730; 87637; 93005; 93306; 93970; 94762; 96374; 99285; A9270; G0378; J1815; J1940

== ENCOUNTER 2023-03-05 09:05 | Outpatient (CLI) | payer OTHER, SELFPAY ==
[2023-03-05 09:55] LABS: Hematocrit 50.7 % (42.0-52.0); Hemoglobin 15.1 g/dL (14.0-18.0)
[2023-03-05 10:10] LABS: Anion Gap 8 mmol/L (8-16); Blood Urea Nitrogen 17 mg/dL (9-20); Calcium 9.3 mg/dL (8.4-10.2); Carbon Dioxide 35 mmol/L (22-30); Chloride 93 mmol/L (98-107); Estimated Glomerular Filt Rate > 60; Glucose 232 mg/dL (65-110); Potassium 3.7 mmol/L (3.4-5.0); Sodium 136 mmol/L (137-145)
[2023-03-05 10:29] LABS: Iron 139 ug/dL (49-181)
[2023-03-05 10:41] LABS: Percent Iron Saturation 39 % (20-50)
== END 2023-03-05 09:06 | disposition home or self-care (01) ==
LOC: ANHLAB 09:07
PROVIDERS: PCP Family Medicine; Visit Provider Family Medicine
DX: E87.1 Hypo-osmolality and hyponatremia (principal); D50.9 Iron deficiency anemia, unspecified
CPT/HCPCS: 36415; 80048; 83540; 83550; 85014; 85018

== ENCOUNTER 2023-04-02 15:20 | Outpatient (CLI) | payer OTHER, SELFPAY ==
[2023-04-02 15:34] LABS: Hematocrit 49.9 % (42.0-52.0); Hemoglobin 16.4 g/dL (14.0-18.0); Mean Corpuscular HGB Conc 32.9 g/dl (32-36); Mean Corpuscular Hemoglobin 25.8 pg (26-34); Mean Corpuscular Volume 78.5 fl (80-100); Mean Platelet Volume 9.2 fl (7.4-10.4); Platelet Count Result 329 k/mm3 (150-375); Red Blood Count 6.36 M/mm3 (4.6-6.20); Red Cell Distribution Width 19.5 % (11.5-14.5); White Blood Count 9.2 K/mm3 (4.5-10.0)
[2023-04-02 15:50] LABS: Anion Gap 10 mmol/L (8-16); Blood Urea Nitrogen 24 mg/dL (9-20); Calcium 9.3 mg/dL (8.4-10.2); Carbon Dioxide 33 mmol/L (22-30); Chloride 87 mmol/L (98-107); Estimated Glomerular Filt Rate > 60; Glucose 174 mg/dL (65-110); Potassium 3.4 mmol/L (3.4-5.0); Sodium 130 mmol/L (137-145)
[2023-04-02 15:56] LABS: NT Pro B Type Natriuretic Pept 24 pg/mL (19.9-100)
== END 2023-04-02 15:21 | disposition home or self-care (01) ==
LOC: ANHLAB 15:22
PROVIDERS: PCP Family Medicine; Visit Provider Family Medicine
DX: I50.9 Heart failure, unspecified (principal)
CPT/HCPCS: 36415; 80048; 83880; 85027

== ENCOUNTER 2023-04-17 15:23 | Outpatient (RCR) | payer OTHER, SELFPAY ==
[2023-04-17 15:31] VITALS: BMI 35.2
== END 2023-07-02 09:44 | disposition home or self-care (01) ==
LOC: ANHDMC 15:23
PROVIDERS: PCP Family Medicine; Visit Provider Family Medicine
DX: I50.9 Heart failure, unspecified (principal); Z71.3 Dietary counseling and surveillance
CPT/HCPCS: 97802

== ENCOUNTER 2023-04-30 08:27 | Outpatient (CLI) | payer OTHER, SELFPAY ==
[2023-04-30 08:57] LABS: Anion Gap 4 mmol/L (8-16); Blood Urea Nitrogen 27 mg/dL (9-20); Calcium 8.6 mg/dL (8.4-10.2); Carbon Dioxide 39 mmol/L (22-30); Chloride 91 mmol/L (98-107); Estimated Glomerular Filt Rate > 60; Glucose 150 mg/dL (65-110); Sodium 134 mmol/L (137-145)
== END 2023-04-30 08:28 | disposition home or self-care (01) ==
LOC: ANHLAB 08:30
PROVIDERS: PCP Family Medicine; Visit Provider Nurse Practitioner Adult Health
DX: E87.1 Hypo-osmolality and hyponatremia (principal)
CPT/HCPCS: 36415; 80048

== ENCOUNTER 2023-05-23 15:08 | Outpatient (CLI) | payer OTHER, SELFPAY ==
--- NOTE | ~2023-05-23 | XR_ITS ---
EXAMINATION: XR foot LT 2V DATE: 05/23/2023 15:17 INDICATION: Nonhealing wound of left fourth toe. TECHNIQUE: 2 views of left foot were obtained. COMPARISON: None. FINDINGS: Bone alignment is normal. No fracture. There is mild osteoarthritis of some of the interpha langeal joints. There is mild midfoot osteoarthritis. There is mild ankle joint osteoarthritis. There are enthesophytes at the posterior and plantar aspects of calcaneal tuberosity. IMPRESSION: 1. No evidence of osteomyelitis. 2. Mild polyarticular osteoarthritis. Reviewed, dictated and finalized at location E. 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
== END 2023-05-23 15:09 | disposition home or self-care (01) ==
LOC: ANHIMG 15:09
PROVIDERS: PCP Family Medicine; Visit Provider Nurse Practitioner Family
DX: E11.65 Type 2 diabetes mellitus with hyperglycemia (principal); S91.302A Unspecified open wound, left foot, initial encounter; X58.XXXA Exposure to other specified factors, initial encounter; M19.072 Primary osteoarthritis, left ankle and foot
CPT/HCPCS: 73620

== ENCOUNTER 2023-08-24 08:01 | Outpatient (RCR) | payer OTHER, SELFPAY ==
[2023-06-15 09:41] VITALS: BMI 37.0
== END 2023-09-13 23:59 | disposition home or self-care (01) ==
LOC: ANHWOC 08:01
PROVIDERS: PCP Family Medicine; Visit Provider Family Medicine
DX: E11.65 Type 2 diabetes mellitus with hyperglycemia (principal); I50.9 Heart failure, unspecified; S91.302D Unspecified open wound, left foot, subsequent encounter
CPT/HCPCS: 99213; 99214; A9270; G0463

== ENCOUNTER 2023-08-27 09:46 | Emergency (ER) | payer OTHER, SELFPAY ==
--- NOTE | ~2023-08-27 | XR_ITS ---
EXAMINATION: XR foot LT min 3V DATE: 08/27/2023 10:14 INDICATION: Diabetic foot ulceration at the base of the fourth toe TECHNIQUE: Dorsoplantar, two oblique and lateral views of the left foot were obtained. COMPARISON: 05/23/2023 FINDINGS: Alignment is normal. No fracture. Mild polyarticular osteoarthritis at the ankle, first metatarsophal angeal and a few tarsometatarsal and interphalangeal joints. Prominent chronic Achilles and plantar c alcaneal spurs. No evident erosions or periosteal reaction to suggest osteomyelitis. Soft tissues are unremarkable. IMPRESSION: 1. Mild polyarticular osteoarthritis. Mild findings to suggest osteomyelitis. Reviewed, dictated and finalized at location B.
--- NOTE | 2023-08-27 09:50 | ED.WOUNDLAC ---
HPI - Wound/Laceration General Chief Complaint: Wound/Laceration Stated Complaint: Open Wound Left Foot Source: patient and RN notes reviewed Mode of arrival: ambulatory Limitations: no limitations History of Present Illness HPI narrative: Patient is a 53-year-old male with a history of diabetes and venous stasis who presents to the [facility] with request for wound check. Patient has had an ongoing wound to his left foot the base his 4th toe. He is under the treatment of wound care and vascular surgery. He states that he just had stents placed in his left lower extremity 2-3 weeks ago to improve circulation. Patient states wound has been healing since the surgery. However, yesterday while he was sitting down he had some increased swelling in his feet (due to increased salt intake per patient) and the wound started bleeding. Patient reports bloody drainage at that time. There is no active drainage present. However, there is noted dried purulent and bloody drainage. He is neurovascularly intact at this of assessment. Sensation is intact and he denies numbness. Related Data Allergies Allergy/AdvReac Type Severity Reaction Status Date / Time watermelon Allergy Swelling Verified 08/27/23 09:52 of Lip/Tongue/Throat Review of Systems Review of Systems: CONSTITUTIONAL: Denies fever, chills, or sweats. EYES: Denies visual changes, redness, or discharge. ENT: Denies otalgia and sore throat CARDIOVASCULAR: Denies chest pain, palpitations, or edema. RESPIRATORY: Denies cough or dyspnea. GASTROINTESTINAL: Denies abdominal pain, nausea, vomiting, or diarrhea. GENITOURINARY: Denies dysuria or hematuria. SKIN: Denies rash or itching. Wound to left foot. MUSCULOSKELETAL: Denies back pain or myalgia. NEUROLOGIC: Denies headache, numbness, or weakness. Pertinent positives per HPI. [facility] Past Medical History Medical History Anemia BMI 36.0-36.9,adult BMI 37.0-37.9, adult BMI 39.0-39.9,adult BMI 40.0-44.9, adult Diabetes type 2, uncontrolled Diminished pulses in lower extremity Elevated BUN Hernia Hernia of abdominal wall HTN (hypertension) Hyperlipidemia Hypochloremia Hyponatremia Numbness and tingling of both feet Pain aggravated by physical activity Phimosis of penis Prediabetes Surgical History Surgical History H/O knee surgery Hx of tonsillectomy Family History Family History Grandparent Bone cancer Lung cancer Father Mother Emphysema lung Limb-girdle myopathy with bone fragility Tobacco abuse Enlarged heart Sibling No problems noted. 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 There is no relevant family history pertinent to the patient complaint. Exam Narrative: GENERAL: This is a well-nourished, well-developed patient, in no apparent distress. HEAD: normocephalic, atraumatic. EYES: Sclera clear/white.
[2023-08-27 09:51] VITALS: BP 138/97; PULSE 93; RESP 16; TEMP 36.1; O2SAT 100
== END 2023-08-27 11:10 | disposition home or self-care (01) ==
PROVIDERS: Emergency Provider Nurse Practitioner; PCP Family Medicine
DX: E11.621 Type 2 diabetes mellitus with foot ulcer (principal); L97.529 Non-pressure chronic ulcer of other part of left foot with unspecified severity; I10 Essential (primary) hypertension; E78.5 Hyperlipidemia, unspecified
CPT/HCPCS: 73630; 99213; G0463

== ENCOUNTER 2023-11-30 07:22 | Outpatient (RCR) | payer OTHER, SELFPAY ==
[2023-09-14 00:03] VITALS: BMI 37.0
== END 2023-12-20 23:59 | disposition home or self-care (01) ==
LOC: ANHWOC 07:22
PROVIDERS: PCP Family Medicine; Visit Provider Family Medicine
DX: E11.65 Type 2 diabetes mellitus with hyperglycemia (principal); I50.9 Heart failure, unspecified; S91.302D Unspecified open wound, left foot, subsequent encounter
CPT/HCPCS: 99213; A9270; G0463

== ENCOUNTER 2024-01-31 15:38 | Outpatient (CLI) | payer OTHER, SELFPAY ==
[2024-01-31 16:22] LABS: Anion Gap 9 mmol/L (4-12); Blood Urea Nitrogen 32 mg/dL (9-20); Calcium 9.3 mg/dL (8.4-10.2); Carbon Dioxide 30 mmol/L (22-30); Chloride 94 mmol/L (98-107); Estimated Glomerular Filt Rate > 60; Glucose 145 mg/dL (65-110); Potassium 4.6 mmol/L (3.4-5.0); Sodium 133 mmol/L (137-145)
[2024-01-31 16:57] LABS: Creatinine Urine 79.8 mg/dL
[2024-01-31 17:00] LABS: MALB Creatinine Ratio 13.2 mg/g (0-30); Microalbumin Urine Random 10.5 mg/L (0-16.7)
[2024-01-31 20:06] LABS: Hemoglobin A1C 7.1 % (<5.7)
== END 2024-01-31 15:39 | disposition home or self-care (01) ==
LOC: ANHLAB 15:39
PROVIDERS: PCP Family Medicine; Visit Provider Family Medicine
DX: E11.65 Type 2 diabetes mellitus with hyperglycemia (principal)
CPT/HCPCS: 36415; 80048; 82043; 83036; 84443

== ENCOUNTER 2024-02-01 07:26 | Outpatient (RCR) | payer OTHER, SELFPAY ==
[2023-12-21 00:04] VITALS: BMI 37.0
== END 2024-03-20 23:59 | disposition home or self-care (01) ==
LOC: ANHWOC 07:26
PROVIDERS: PCP Family Medicine; Visit Provider Family Medicine
DX: S91.302D Unspecified open wound, left foot, subsequent encounter (principal); E11.65 Type 2 diabetes mellitus with hyperglycemia; I50.9 Heart failure, unspecified
CPT/HCPCS: 99212; 99213; A9270; G0463

== ENCOUNTER 2024-09-16 09:17 | Day surgery (SDC) | payer OTHER, SELFPAY ==
[2024-09-16] VITALS (17 sets, daily range): BP systolic 118–181; BP diastolic 62–101; PULSE 74–112; RESP 15–22; TEMP 36.6–36.8; O2SAT 84–97
--- NOTE | ~2024-09-16 | XR_ITS ---
EXAMINATION: XR chest 1V portable DATE: 09/16/2024 13:54 INDICATION: Status post procedure TECHNIQUE: frontal view of the chest was obtained. COMPARISON: Chest radiograph dated 12/26/22 FINDINGS: Large sclerotic lesion at the anterior right fifth rib likely a benign bone island noted is present f or over [address] dated 12/12/2013. A few small calcified pulmonary nodules in the bilateral l ower lungs. No other airspace opacities, pulmonary edema, pleural effusion or pneumothorax. Cardiomeg durga. IMPRESSION: 1. Cardiomegaly. No acute cardiopulmonary disease. Reviewed, dictated and finalized at location A.
--- NOTE | 2024-09-16 09:35 | ED_ITS ---
HPI - Skin/Abscess/Foreign Bdy General Chief complaint: Skin/Abscess/Foreign Body <Genny Kemp PA-C - Last Filed: 09/16/24 10:30> Stated complaint: STEAK STUCK IN THROAT <Genny Kemp PA-C - Last Filed: 09/16/24 10:30> Time Seen by Provider: 09/16/24 09:22 <RENETTA Ly Last Filed: 09/16/24 10:30> Source: patient <RENETTA Ly Last Filed: 09/16/24 10:30> Mode of arrival: ambulatory <RENETTA Ly Last Filed: 09/16/24 10:30> Limitations: no limitations <RENETTA Ly Last Filed: 09/16/24 10:30> History of Present Illness HPI narrative: This is a 54-year-old male that presents to the emergency department for soft tissue foreign body. Reports he ate steak last night around 4:00 p.m.. He has not been able to keep down any liquids or solid since. He thought maybe would go away overnight. He woke up this morning continuing to vomit. <RENETTA Ly Last Filed: 09/16/24 10:30> Related Data Allergies/Adverse reactions: Allergies Allergy/AdvReac Type Severity Reaction Status Date / Time watermelon Allergy Swelling Verified 06/02/24 15:37 of Lip/Tongue/Throat <RENETTA Ly Last Filed: 09/16/24 10:30> Review of Systems Review of Systems: CONSTITUTIONAL: Denies fever GASTROINTESTINAL: Reports nausea, vomiting <RENETTA Ly Last Filed: 09/16/24 10:30> All systems reviewed & are unremarkable except as noted in HPI and below <RENETTA Ly Last Filed: 09/16/24 10:30> PMFSH Past Medical History Medical History: Medical History Diabetic neuropathy Pain aggravated by physical activity Diminished pulses in lower extremity Hernia of abdominal wall BMI 36.0-36.9,adult Elevated BUN Hypochloremia Hyponatremia Hernia Numbness and tingling of both feet Diabetes type 2, uncontrolled Anemia Prediabetes Phimosis of penis Hyperlipidemia HTN (hypertension) <Genny Kemp PA-C - Last Filed: 09/16/24 10:30> Surgical History Surgical History: Surgical History Hx of tonsillectomy H/O knee surgery <Genny Kemp PA-C - Last Filed: 09/16/24 10:30> Family History Family History: Family History Grandparent Bone cancer Lung cancer Father Mother Emphysema lung Limb-girdle myopathy with bone fragility Tobacco abuse Enlarged heart Sibling No problems noted. <Genny Kemp PA-C - Last Filed: 09/16/24 10:30> Social History Social History: Social History Smoking status: Never smoker Second hand tobacco smoke exposure: Yes Alcohol intake: never Substance use: never Substance use type: does not use Do You Feel Safe in your Home?: Yes Lack of Transportation: No Lack of Food: Never True Current Housing: I Have Housing Concerned About Future Housing: YES Difficulty Paying Gas/Electric Bills: No Difficulty Paying for Meds: YES Currently Unemployed: No Education: High School Diploma/GED Difficulty w/ Childcare or Family Care: No Living arrangements: with family Occupation/Education: occupation 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 HEAD: Normocephalic, atraumatic. EYES: EOMI. ENT: Nares clear, no rhinorrhea or epistaxis. Mucous membranes moist. Oropharynx without tonsillar hypertrophy exudate or other lesions. CHEST: Clear to auscultation. No respiratory distress. No wheezes rales or rhonchi HEART: Regular rate and rhythm. No murmur heard. Normal peripheral pulses. ABDOMEN: Soft, nontender, nondistended EXTREMITIES: Normal range of motion. No edema. SKIN: Warm, dry, no rash. NEURO: No focal deficits. Alert and oriented x3. PSYCH: Normal mood and affect <Genny Kemp PA-C - Last Filed: 09/16/24 10:30> Course [employer]ISH[employer]/PA Physician Supervision I agree with midlevel documentation; I performed the medical decision making component of this evaluation. <Kierra Doyle MD - Last Filed: 09/16/24 11:17> Consultations Consultation #1: Spoke with Dr. Romero about patient and workup who will take patient to the GI lab <Genny Kemp PA-C - Last Filed: 09/16/24 10:30> Date: 09/16/24 <Genny Kemp PA-C - Last Filed: 09/16/24 10:30> Vital Signs Vital signs: Vital Signs Temperature 98 F 09/16/24 09:31 Pulse Rate 89 09/16/24 09:31 Respiratory Rate 18 09/16/24 09:31 Blood Pressure 148/86 H 09/16/24 09:31 Pulse Oximetry 97 09/16/24 09:31 Oxygen Delivery Room Air 09/16/24 09:31 Temperature 98 F 09/16/24 09:31 Pulse Rate 87 09/16/24 10:56 Respiratory Rate 18 09/16/24 10:56 Blood Pressure 146/93 H 09/16/24 10:56 Pulse Oximetry 96 09/16/24 10:56 Oxygen Delivery Room Air 09/16/24 09:31 <Genny Kemp PA-C - Last Filed: 09/16/24 10:30> Vital Signs Temperature 98 F 09/16/24 09:31 Pulse Rate 89 09/16/24 09:31 Respiratory Rate 18 09/16/24 09:31 Blood Pressure 148/86 H 09/16/24 09:31 Pulse Oximetry 97 09/16/24 09:31 Oxygen Delivery Room Air 09/16/24 09:31 Temperature 98 F 09/16/24 09:31 Pulse Rate 87 09/16/24 10:56 Respiratory Rate 18 09/16/24 10:56 Blood Pressure 146/93 H 09/16/24 10:56 Pulse Oximetry 96 09/16/24 10:56 Oxygen Delivery Room Air 09/16/24 09:31 <Kierra Doyle MD - Last Filed: 09/16/24 11:17> MDM - Skin/Abscess/Foreign Bdy MDM Narrative Medical decision making narrative: Patient presents to the emergency department for food impaction. After eating steak last night he has not been able to keep down any liquids or solids. Spoke with GI, Dr. Romero, patient will be taken to the GI lab for further care <Genny Kemp PA-C - Last Filed: 09/16/24 10:30> Differential Diagnosis Differential diagnosis: Likely other (Food bolus, esophageal stricture) <Genny Kemp PA-C - Last Filed: 09/16/24 10:30> Critical Care Time Critical Care Time Critical Care Time: No <Genny Kemp PA-C - Last Filed: 09/16/24 10:30> Discharge Plan Discharge Clinical Impression: Esophageal obstruction due to food impaction <Genny Kemp PA-C - Last Filed: 09/16/24 10:30> Patient Disposition: Still a Patient <RENETTA Ly Last Filed: 09/16/24 10:30> Condition: Stable <Genny Kemp PA-C - Last Filed: 09/16/24 10:30> Patient Language: Turkish <Genny Kemp PA-C - Last Filed: 09/16/24 10:30> Prescriptions: No Action silver sulfadiazine [Silvadene] 1 % cream 1 applic topical DAILY Qty: 50 0RF Rx Instructions: apply a 1.5 mm thickness spironolactone 25 mg tablet 25 mg PO DAILY Qty: 90 1RF ramipril 10 mg capsule See Rx Instructions .ROUTE .COMPLEX Qty: 90 0RF Dose Instruction: TAKE 1 CAPSULE BY MOUTH DAILY Rx Instructions: TAKE 1 CAPSULE BY MOUTH DAILY furosemide [Lasix] 40 mg tablet 40 mg PO BID Qty: 180 0RF amlodipine 5 mg tablet See Rx Instructions .ROUTE .COMPLEX Qty: 90 0RF Dose Instruction: TAKE 1 TABLET BY MOUTH DAILY Rx Instructions: TAKE 1 TABLET BY MOUTH DAILY metoprolol succinate 50 mg tablet extended release 24 hr See Rx Instructions .ROUTE .COMPLEX Qty: 90 1RF Dose Instruction: TAKE 1 TABLET BY MOUTH DAILY Rx Instructions: TAKE 1 TABLET BY MOUTH DAILY Mounjaro 2.5 mg/0.5 mL pen injector See Rx Instructions .ROUTE .COMPLEX Qty: 2 0RF Dose Instruction: ADMINISTER 2.5 MG UNDER THE SKIN WEEKLY FOR 4 WEEKS Rx Instructions: ADMINISTER 2.5 MG UNDER THE SKIN WEEKLY FOR 4 WEEKS gabapentin 300 mg capsule 300 mg PO BID Qty: 60 1RF Synjardy XR 12.5-1,000 mg tablet, IR - ER, biphasic 24hr 2 tablet PO DAILY Qty: 180 1RF ferrous sulfate [Feosol] 325 mg (65 mg iron) tablet 325 mg PO DAILY Qty: 90 3RF <Genny Kemp PA-C - Last Filed: 09/16/24 10:30> Follow-up/Referrals: Carlos Pike MD [Primary Care Provider] - <Genny Kemp PA-C - Last Filed: 09/16/24 10:30>
[2024-09-16] MEDS: ONDANSETRON INJ 4 MG/2 ML VIAL IV PUSH (11:37)
[2024-09-16] MEDS: LACTATED RINGERS 1,000 ML 150 ML IV CONT (11:56)
[2024-09-16 12:02] LABS: Glucose Point of Care 145 mg/dl (65-105)
--- NOTE | 2024-09-16 12:47 | PM.HPGS ---
History of Present Illness History of Present Illness Consent: Risks, benefits, and alternatives have been discussed and questions answered. Patient agrees to proceed with procedure. Chief complaint: STEAK STUCK IN THROAT Narrative: Nixon Su is a 54 year old male here with food folus, had steak for dinner yesterday and unable to handle secretions since Review of Systems Review of Systems: All systems reviewed & are unremarkable except as noted in HPI and below PMFSH Past Medical History Medical History Diabetic neuropathy Pain aggravated by physical activity Diminished pulses in lower extremity Hernia of abdominal wall BMI 36.0-36.9,adult Elevated BUN Hypochloremia Hyponatremia Hernia Numbness and tingling of both feet Diabetes type 2, uncontrolled Anemia Prediabetes Phimosis of penis Hyperlipidemia HTN (hypertension) Surgical History Surgical History Hx of tonsillectomy H/O knee surgery Family History Family History Grandparent Bone cancer Lung cancer Father Mother Emphysema lung Limb-girdle myopathy with bone fragility Tobacco abuse Enlarged heart Sibling No problems noted. 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 Gender identity (if verbalized by the patient): Male Spiritual care concerns: No Meds Home Medications and Allergies Home Medications ?Medication ?Instructions ?Recorded ?Confirmed ?Type silver sulfadiazine 1 % topical 1 applic topical DAILY #50 grams 03/21/24 09/16/24 Rx cream (Silvadene) spironolactone 25 mg tablet 25 mg PO DAILY #90 tabs 04/29/24 09/16/24 Rx furosemide 40 mg tablet (Lasix) 40 mg PO BID #180 tabs 05/13/24 09/16/24 Rx ramipril 10 mg capsule See Rx Instructions .Route 05/13/24 09/16/24 Rx .COMPLEX #90 caps amlodipine 5 mg tablet See Rx Instructions .Route 06/03/24 09/16/24 Rx .COMPLEX #90 tabs metoprolol succinate 50 mg See Rx Instructions .Route 06/22/24 09/16/24 Rx tablet,extended release 24 hr .COMPLEX #90 tabs tirzepatide 2.5 mg/0.5 mL See Rx Instructions .Route 07/06/24 09/16/24 Rx subcutaneous pen injector .COMPLEX #2 mL (Mounjaro) gabapentin 300 mg capsule 300 mg PO BID #60 caps 07/07/24 09/16/24 Rx empagliflozin 12.5 mg-metformin ER 2 tablet (2 x 12.5-1,000 mg) PO 07/14/24 09/16/24 Rx 1,000 mg tablet,extended rel 24 hr DAILY #180 ea (Synjardy XR) ferrous sulfate 325 mg (65 mg 325 mg PO DAILY #90 tabs 07/14/24 09/16/24 Rx iron) tablet (Feosol) Allergies Allergy/AdvReac Type Severity Reaction Status Date / Time watermelon Allergy Swelling Verified 06/02/24 15:37 of Lip/Tongue/Throat Vital Signs Vital Signs - 24 hr 09/16/24 09:31 09/16/24 10:56 09/16/24 11:37 Temperature 98 F Pulse Rate 89 87 85 Respiratory Rate 18 18 15 Blood Pressure 148/86 H 146/93 H 147/91 H Pulse Oximetry 97 96 96 Oxygen Delivery Room Air 09/16/24 11:53 Temperature 98.2 F Pulse Rate 86 Respiratory Rate 20 Blood Pressure 181/98 H Pulse Oximetry 94 Oxygen Delivery Room Air Exam Const: General: comfortable and no acute distress HENMT: Face/Nose/Sinus: Normal nares present Eyes: General: appearance normal, both eyes and all related structures Resp: Auscultation: clear to auscultation bilaterally Cardio: Rate: regular rate Rhythm: regular rhythm GI: Inspection: non-distended GI Palp: Yes Soft to palpation Skin: General skin exam: normal color Neuro: Speech: normal speech Extrem: General: normal to inspection Psych: Mental Status: mental status grossly normal Assessment and Plan Assessment and plan (1) Esophageal obstruction due to food impaction: Code(s): T18.128A - Food in esophagus causing other injury, initial encounter; W44.F3XA - Food entering into or through a natural orifice, initial encounter Status: Acute Assessment and Plan: urgent egd to remove bolus
--- NOTE | 2024-09-16 13:02 | S_PTH ---
PATIENT: Nixon Su LOC: [facility] U#:[id number] AGE/SX: 54/M ROOM: RE09/16/[address]: Lew Aldana MD : 1970 BED: DIS: 09/16/2024 SPEC #: [id number] RECD: 09/16/24 13:41 STATUS: TANYA RESha #: [id number] KAREN: 09/16/24 13:[address]: Lew Aldana DEPT: [facility] Surgical RECD BY: Wero Glez ENTERED: 09/16/24 13:42 SP TYPE: Surgical OTHR DR: Carlos Pike MD Tissues: A - Gastric Biopsy B - Esophageal Biopsy Procedures: Hematoxylin and Eosin Stain Gross and Microscopic Level 4 H.Pylori
--- NOTE | 2024-09-16 13:40 | SUR.PHASEII ---
Dr. Oneill notified of pt. continuous cough. Vitals stable. O2 running at 4L per mask. Order received for portable chest xray. Pt. comfortable.
--- NOTE | 2024-09-16 14:05 | SUR.PHASEII ---
1340: Pt. complaining of SOB and continuous coughing. Oxygen at 4L given per facial mask. Lungs ausculated. Bilateral upper lobes clear. Mid lobes diminished. Bottom lobes had expirtory wheezes with limited air movement.
--- NOTE | 2024-09-16 14:16 | SUR.PHASEII ---
Chest x-rays reviewed per Dr. Jain. Orders received for stat breathing treatment. 1415: Respiratory notified for breathing treatment. O2 increased to 4L. Decreased coughing noted. Sats remain at 88. Instructed pt. and family to resume his Lasix medication when returning home. Pt. and verbalized understanding.
--- NOTE | 2024-09-16 14:24 | SUR.PHASEII ---
Respiratory at bedside.
--- NOTE | 2024-09-16 14:45 | SUR.PHASEII ---
1440: O2 turned off. Sats remain at 92. Pt. comfortable. Coughing has decreased since breathing treatment. Pt. states he is ready to go home. at bedside.
[2024-09-16] MEDS: ALBUTEROL SULFATE NEB 2.5 MG/3 ML INH INHALATION (14:46)
--- NOTE | 2024-09-16 14:53 | SUR.PHASEII ---
Dr. Jain at bedside. Order received for Lasix 20mg. IV.
[2024-09-16] MEDS: FUROSEMIDE INJ 40 MG/4 ML VIAL 20 MG IV PUSH (14:58)
--- NOTE | 2024-09-16 15:09 | SUR.PHASEII ---
Dr. Jain at bedside.
--- NOTE | 2024-09-16 15:19 | SUR.PHASEII ---
Dr. Jain notified per Kenia Cheek. Status report given. Order received for discharged. Instructed to return to ER if breathing becomes worse and to follow up with primary MD. for present breathing issues. Pt. verbalized understanding.
== END 2024-09-16 15:27 | disposition home or self-care (01) ==
LOC: ANHED 11:56 → ANHSURGERY 12:00
PROVIDERS: Emergency Provider Physician Assistant; PCP Family Medicine; Visit Provider Internal Medicine Gastroenterology
PROC: 0DJ08ZZ Inspection of Upper Intestinal Tract, Via Natural or Artificial Opening Endoscopic (ICD-10-PCS; CPT 43247; principal; 2024-09-16 15:30)
DX: T18.128A Food in esophagus causing other injury, initial encounter (principal); K22.2 Esophageal obstruction; K20.0 Eosinophilic esophagitis; K29.50 Unspecified chronic gastritis without bleeding; W44.F3XA Food entering into or through a natural orifice, initial encounter; E78.5 Hyperlipidemia, unspecified; I10 Essential (primary) hypertension; E11.40 Type 2 diabetes mellitus with diabetic neuropathy, unspecified; D64.9 Anemia, unspecified; E87.1 Hypo-osmolality and hyponatremia; E87.8 Other disorders of electrolyte and fluid balance, not elsewhere classified; Z79.85 Long-term (current) use of injectable non-insulin antidiabetic drugs; Z79.84 Long term (current) use of oral hypoglycemic drugs; Z98.890 Other specified postprocedural states; Z80.8 Family history of malignant neoplasm of other organs or systems; Z80.1 Family history of malignant neoplasm of trachea, bronchus and lung
CPT/HCPCS: 43247; 43239; 71045; 82948; 88305; 88342; 94640; 99285; J0330; J1938; J2405; J2704; J7120

== ENCOUNTER 2024-09-23 08:04 | Outpatient (CLI) | payer OTHER, SELFPAY ==
[2024-09-23 09:00] LABS: Hematocrit 48.6 % (42.0-52.0); Hemoglobin 15.1 g/dL (14.0-18.0); Mean Corpuscular HGB Conc 31.1 g/dl (32-36); Mean Corpuscular Hemoglobin 27.8 pg (26-34); Mean Corpuscular Volume 89.3 fl (80-100); Mean Platelet Volume 9.2 fl (7.4-10.4); Platelet Count Result 320 k/mm3 (150-375); Red Blood Count 5.44 M/mm3 (4.6-6.20); Red Cell Distribution Width 14.3 % (11.5-14.5); White Blood Count 10.7 K/mm3 (4.5-10.0)
[2024-09-23 09:20] LABS: Creatinine Urine 104.5 mg/dL
[2024-09-23 09:22] LABS: Iron 37 ug/dL (49-181)
[2024-09-23 09:27] LABS: MALB Creatinine Ratio 26.4 mg/g (0-30); Microalbumin Urine Random 27.6 mg/L (0-16.7)
[2024-09-23 09:31] LABS: Alanine Aminotransferase 21 U/L (6-50); Albumin Level 3.7 g/dL (3.5-5.1); Alkaline Phosphatase 92 U/L (38-126); Anion Gap 8 mmol/L (4-12); Aspartate Amino Transferase 20 U/L (17-59); Bilirubin Direct 0.1 mg/dL (0-0.3); Bilirubin,Total 0.5 mg/dL (0.2-1.3); Blood Urea Nitrogen 22 mg/dL (9-20); Carbon Dioxide 30 mmol/L (22-30); Chloride 101 mmol/L (98-107); Cholesterol 198 mg/dL (0-200); Estimated Glomerular Filt Rate > 60; Glucose 123 mg/dL (65-110); HDL Direct 25 mg/dL; Potassium 4.6 mmol/L (3.4-5.0); Sodium 139 mmol/L (137-145); Total Protein 7.2 g/dL (6.3-8.2); Triglycerides 114 mg/dL (<150)
[2024-09-23 09:32] LABS: Percent Iron Saturation 13 % (20-50)
[2024-09-23 09:35] LABS: Hemoglobin A1C 6.3 % (<5.7)
[2024-09-23 09:42] LABS: LDL Cholesterol Direct 141 mg/dL
[2024-09-23 10:02] LABS: Prostate Specific Antigen 0.8 ng/mL (< OR = 4.0)
--- NOTE | 2024-09-30 13:58 | WPDANESEPPF ---
Anes - Initial Pre Proc Eval Procedure: EGD food bolus removal Date/Time: 09/16/24 13:58 Surgeon: Sania Pre Op Diagnosis: food bolus Pre Op Diagnosis: Encounter for screening for lipid disorder Hyperli Patient Data Age: 54 Gender: M Height: Weight: Allergies Allergy/AdvReac Type Severity Reaction Status Date / Time watermelon Allergy Swelling Verified 06/02/24 15:37 of Lip/Tongue/Throat Home Medications ?Medication ?Instructions ?Recorded ?Confirmed ?Type silver sulfadiazine 1 % topical 1 applic topical DAILY #50 grams 03/21/24 09/29/24 Rx cream (Silvadene) spironolactone 25 mg tablet 25 mg PO DAILY #90 tabs 04/29/24 09/29/24 Rx furosemide 40 mg tablet (Lasix) 40 mg PO BID #180 tabs 05/13/24 09/29/24 Rx ramipril 10 mg capsule See Rx Instructions .Route 05/13/24 09/29/24 Rx .COMPLEX #90 caps metoprolol succinate 50 mg See Rx Instructions .Route 06/22/24 09/29/24 Rx tablet,extended release 24 hr .COMPLEX #90 tabs tirzepatide 2.5 mg/0.5 mL See Rx Instructions .Route 07/06/24 09/29/24 Rx subcutaneous pen injector .COMPLEX #2 mL (Mounjaro) gabapentin 300 mg capsule 300 mg PO BID #60 caps 07/07/24 09/29/24 Rx empagliflozin 12.5 mg-metformin ER 2 tablet (2 x 12.5-1,000 mg) PO 07/14/24 09/29/24 Rx 1,000 mg tablet,extended rel 24 hr DAILY #180 ea (Synjardy XR) ferrous sulfate 325 mg (65 mg 325 mg PO DAILY #90 tabs 07/14/24 09/29/24 Rx iron) tablet (Feosol) omeprazole 40 mg capsule,delayed 40 mg PO DAILY #30 caps 09/16/24 09/29/24 Rx release amlodipine 5 mg tablet See Rx Instructions .Route 09/25/24 09/29/24 Rx .COMPLEX #90 tabs cefdinir 300 mg capsule 300 mg PO Q12H 10 days #20 caps 09/29/24 09/29/24 Rx Patient hx anesthesia problems: none Family hx anesthesia problems: none Results Review: All pre-operative results and documents have been reviewed as part of the pre-operative evaluation. [facility] Past Medical History Medical History (Updated 09/29/24 @ 16:54 by Carlos Pike MD) Diabetic neuropathy Pain aggravated by physical activity Diminished pulses in lower extremity Hernia of abdominal wall BMI 36.0-36.9,adult Elevated BUN Hypochloremia Hyponatremia Hernia Numbness and tingling of both feet Diabetes type 2, uncontrolled Anemia Prediabetes Phimosis of penis Hyperlipidemia HTN (hypertension) Surgical History Surgical History Hx of tonsillectomy H/O knee surgery Family History Family History Grandparent Bone cancer Lung cancer Father Mother Emphysema lung Limb-girdle myopathy with bone fragility Tobacco abuse Enlarged heart Sibling No problems noted. 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 Informed Consent: The patient's anesthetic plan and its attendant risks and benefits were discussed with the patient/family/POA. Questions were solicited and answers provided to the satisfaction of the patient/family/POA.
== END 2024-09-23 08:05 | disposition home or self-care (01) ==
LOC: ANHLAB 08:05
PROVIDERS: PCP Family Medicine; Visit Provider Family Medicine
DX: E11.65 Type 2 diabetes mellitus with hyperglycemia (principal); Z12.5 Encounter for screening for malignant neoplasm of prostate; D50.9 Iron deficiency anemia, unspecified; R20.0 Anesthesia of skin; R20.2 Paresthesia of skin; Z13.220 Encounter for screening for lipoid disorders; E78.2 Mixed hyperlipidemia
CPT/HCPCS: 36415; 80048; 80061; 80076; 82043; 82607; 82728; 83036; 83540; 83550; 84153; 84443; 85027; G0103